=== PATIENT | female | born 2000 | race Caucasian/White ===

== ENCOUNTER 2019-03-11 11:54 | Emergency (ER) | payer OTHER ==
[~2019-03-11] VITALS: Ht 167.6 cm; Wt 60.8 kg
[2019-03-11 12:01] VITALS: BP 109/79; PULSE 86; RESP 18; Ht 167.6 cm; Wt 60.8 kg
[2019-03-11] MEDS ORDERED: LOPE2CAP PO (13:05)
[2019-03-11] MEDS ORDERED: ONDA4TAB14 PO (13:05)
--- NOTE | 2019-03-11 13:11 | ERD ---
ER Documentation Chief Complaint Chief Complaint Diarrhea 2x, wants to r/o food poisoning, need wk note yesterday HPI 18-year-old female presents with diarrhea x1 day. She states she is some sushi yesterday and developed the diarrhea afterwards. She states that she has watery stools. No bright red blood or dark stools noted. She has been having 5-6 episodes a day. She states that she has abdominal pain in the periumbilical area that is rated 8 out of 10, lasting 1 to 2 minutes at a time, described as sharp, nonradiating. She denies any fevers or chills. Denies chest pain or shortness of breath. No significant past medical history. No other modifying factors noted, no treatments tried at home. ROS All systems reviewed and are negative except as per history of present illness. Medications Home Meds Active Scripts Ondansetron (Ondansetron Odt) 4 Mg Tab.rapdis, 4 MG PO Q6H PRN for NAUSEA AND/OR VOMITING, #15 TAB Prov:JESUS OSORIO DO 03/11/19 Loperamide Hcl* (Imodium*) 2 Mg Capsule, 2 MG PO QID PRN for DIARRHEA, #30 CAP MAX 16 mg/day Prov:JESUS OSORIO DO 03/11/19 Allergies Allergies: Coded Allergies: No Known Allergy (Unverified , 03/11/19) PMhx/Soc Medical and Surgical Hx: pt denies Medical Hx, pt denies Surgical Hx Hx Alcohol Use: No Hx Substance Use: No Hx Tobacco Use: No Smoking Status: Never smoker FmHx Family History: No coronary disease Physical Exam Vitals Vital Signs Date Temp Pulse Resp B/P (MAP) Pulse Ox O2 O2 Flow FiO2 Time Delivery Rate 03/11/19 97.7 86 18 109/79 99 12:01 (89) Physical Exam Const: No acute distress Resp: Clear to auscultation bilaterally Cardio: Regular rate and rhythm, no murmurs Abd: Soft, non distended. Normal bowel sounds, mild tenderness palpation over the para umbilical area, no McBurney's point tenderness, no Holt sign, no rebound or guarding noted Skin: No petechiae or rashes Back: No midline or flank tenderness Ext: No cyanosis, or edema Neur: Awake and alert Psych: Normal Mood and Affect Procedures/MDM Medical Decision Making: Differential diagnosis includes but not limited to acute gastritis, acute gastroenteritis, appendicitis, cholecystitis, pancreatitis, nephrolithiasis, pyelonephritis Patient appeared well on physical exam. Nontoxic appearing. Abdominal examination relatively benign Given the patient appeared well and the abdominal examination was benign, there is low suspicion for appendicitis, cholecystitis, nephrolithiasis, pyelonephritis Given diarrhea and nausea after eating sushi, there is a possibility patient has acute gastroenteritis Prescription(s): Patient given prescription for supportive medications . Discussed with patient the importance of hydration. Patient advised to follow up with PCP in 1-2 days. Patient advised to return to ED for new or worsening symptoms. Patient stable on discharge from the ED. Disclaimer: Inadvertent spelling and grammatical errors are likely due to EHR/dictation software use and do not reflect on the overall quality of patient care. Also, please note that the electronic time recorded on this note does not necessarily reflect the actual time of the patient encounter. Departure Diagnosis: Primary Impression: Diarrhea Diarrhea type: unspecified type Qualified Codes: R19.7 - Diarrhea, unspecified Additional Impression: Nausea Condition: Fair Patient Instructions: Treating Diarrhea, Nausea Referrals: [facility] YOU HAVE RECEIVED A MEDICAL SCREENING EXAM AND THE RESULTS INDICATE THAT YOU DO NOT HAVE A CONDITION THAT REQUIRES URGENT TREATMENT IN THE EMERGENCY DEPARTMENT. FURTHER EVALUATION AND TREATMENT OF YOUR CONDITION CAN WAIT UNTIL YOU ARE SEEN IN YOUR DOCTORS OFFICE WITHIN THE NEXT 1-2 DAYS. IT IS YOUR RESPONSIBILITY TO MAKE AN APPOINTMENT FOR FOLOW-UP CARE. IF YOU HAVE A PRIMARY DOCTOR --you should call your primary doctor and schedule an appointment IF YOU DO NOT HAVE A PRIMARY DOCTOR YOU CAN CALL OUR PHYSICIAN REFERRAL HOTLINE AT IF YOU CAN NOT AFFORD TO SEE A PHYSICIAN YOU CAN CHOSE FROM THE FOLLOWING [facility] [address] [facility] [address] [facility] [address] [facility] [address] [facility] [address] [facility] [facility]. [address] Additional Instructions: Call your primary care doctor TOMORROW for an appointment during the next 1-2 days.See the doctor sooner or return here if your condition worsens before your appointment time. JESUS OSORIO DO March 11, 2019 13:11
== END 2019-03-11 13:32 | disposition home or self-care (01) ==
LOC: FTE 11:54
DX: R19.7 Diarrhea, unspecified (principal); R11.0 Nausea
CPT/HCPCS: 99283

== ENCOUNTER 2019-04-11 23:58 | Emergency (ER) | payer OTHER ==
[~2019-04-11] VITALS: Ht 167.6 cm; Wt 59.6 kg
[~2019-04-11 23:58] MED LIST: LOPE2CAP PO; ONDA4TAB14 PO
[2019-04-12 00:16] VITALS: BP 116/74; PULSE 79; RESP 18; Ht 167.6 cm; Wt 59.6 kg
--- NOTE | 2019-04-12 02:25 | ERD ---
ER Documentation Chief Complaint Chief Complaint bug bites on legs, wrists, once 4 days ago, again this morning while hiking HPI This is a 18-year-old female who was accompanied by mother in emerge department with complaints of bug bites to legs, wrists. Stated that this appeared this morning. Stated that she was hiking. LMP: Stated that she is on it. G0, . Denies headache, head injury, loss of consciousness, dizziness, neck pain, neck stiffness, throat pain, difficulty swallowing, difficulty breathing lying flat, shoulder pain, chest pain, back pain, abdominal pain, nausea, vomiting, constipation, diarrhea, urinary symptoms, or possibility being , loss of bowel and bladder control, trauma, injury, falls, difficulty walking due to pain, numbness or tingling sensation, calf pain, recent travel, recent major surgery in the last 3 weeks, calf pain, recent long travel, recent exposure to any illness, recent antibiotic use in the last 3 months, fever, chills, seizures. Past medical history: Denies. Surgical history: Denies. Social: Denies smoking, use of alcoholic beverages, use of illegal drugs. ROS All systems reviewed and are negative except as per history of present illness. Medications Home Meds Active Scripts Famotidine* (Pepcid*) 20 Mg Tablet, 20 MG PO BID for 30 Days, TAB Prov:SIRIA DUNNE 04/12/19 Cephalexin* (Keflex*) 500 Mg Capsule, 500 MG PO TID for 7 Days, CAP Prov:SIRIA DUNNE 04/12/19 Loratadine* (Loratadine*) 10 Mg Tablet, 10 MG PO DAILY, #30 TAB Prov:SIRIA DUNNE 04/12/19 Diphenhydramine Hcl* (Benadryl*) 25 Mg Cap, 25 MG PO Q6 PRN for ITCHING/RASH, #30 TAB Prov:SIRIA DUNNE 04/12/19 Prednisone* (Prednisone*) 20 Mg Tab, 40 MG PO DAILY for 4 Days, TAB Prov:SIRIA DUNNE 04/12/19 Ondansetron (Ondansetron Odt) 4 Mg Tab.rapdis, 4 MG PO Q6H PRN for NAUSEA AND/OR VOMITING, #15 TAB Prov:JESUS OSORIO DO 5/27/19 Loperamide Hcl* (Imodium*) 2 Mg Capsule, 2 MG PO QID PRN for DIARRHEA, #30 CAP MAX 16 mg/day Prov:JESUS OSORIO DO 03/11/19 Allergies Allergies: Coded Allergies: No Known Allergy (Unverified , 03/11/19) PMhx/Soc Hx Alcohol Use: No Hx Substance Use: No Hx Tobacco Use: No Physical Exam Vitals Vital Signs Date Temp Pulse Resp B/P (MAP) Pulse Ox O2 O2 Flow FiO2 Time Delivery Rate 04/12/19 98.6 79 18 116/74 100 00:16 (88) Physical Exam Const: No acute distress Head: Atraumatic Eyes: Normal Conjunctiva. No conjunctival injection. ENT: Normal External Ears, Nose and Mouth. Bilateral ear: TM is not erythematous. No bleeding. No discharge. No hearing loss. No mastoid tenderness. Nose: No nasal flaring. No signs of obstruction. Throat/Lips: No lip swelling. No tongue swelling. Able to control tongue movement. No drooling. Uvula is in midline and non-displaced. Tonsils are + 1 with no redness and no exudates. Tolerating secretions. Patent airway. Speaks full and clear sentences. No tripoding. Neck: Full range of motion. No meningismus. Nuchal rigidity. No signs of meningeal irritation. Resp: Clear to auscultation bilaterally. No retraction noted. No accessory muscle use in breathing. Cardio: Regular rate and rhythm, no murmurs. Abd: Soft, non tender, non distended. Normal bowel sounds. No abdominal tenderness. Skin: No petechiae. No vesicular lesions. Circular rash x4 to right wrist, circular rash x2 to right knee, circular rash x3 to left knee, circular rashes and hives noted to abdomen. No skin tenting. No signs of severe dehydration. Back: No midline or flank tenderness Ext: No cyanosis, or edema Neur: Awake and alert. No neurological deficit.. Psych: Normal Mood and Affect Results 24 hrs Current Medications Medications Dose Sig/Niraj Start Time Status Last (Trade) Ordered Route PRN Stop Time Admin Dose Reason Admin 125 mg ONCE ONCE 04/12/19 DC 04/12/19 Methylprednis IM 02:30 02:36 olone Sodium 04/12/19 02:31 Succinate (Solu-Medrol) Famotidine 40 mg ONCE ONCE 04/12/19 DC 04/12/19 (Pepcid) PO 02:30 02:36 04/12/19 02:31 50 mg ONCE ONCE 04/12/19 DC 04/12/19 Diphenhydrami PO 02:30 02:36 ne HCl 04/12/19 02:31 (Benadryl) Procedures/MDM Diagnostic tests: Clinical exam. Treatment: Solu-Medrol IM. Pepcid p.o. Benadryl. Re-evaluation: Denies itchiness. No drooling. Able to control tongue movement. No tripoding. No facial swelling. No accessory muscle use in breathing. Lung sounds are clear to auscultation. Capillary refills are less than 2 seconds. No neurovascular deficit. No neurological deficits. Stated that she feels much better this time and that she is ready to go home. Stated that she is comfortable to go home. Differential diagnosis I have low suspicion for anaphylaxis, anaphylactic shock, Prescott-Telly syn drome, scabies, deep space infection, shingles, hemorrhagic fever, chickenpox. Final diagnosis: Allergic reaction. Possible infection secondary to insect bite. Prescription: Prednisone. Benadryl. Claritin. Keflex to start in 2 days if developed fever. Follow-up with PCP in the next 24-48 hours. PCP to do an allergy test for environmental and food. PCP to refer patient to immunology specialist in the next 3 to 5 days. Come back here in the emergency department for any new symptoms or any worsening symptoms. All questions and concerns were answered. Patient and family members verbalized understanding and agreed with plan of care. Hemodynamically stable on discharge. Departure Diagnosis: Primary Impression: Insect bite Condition: Stable Additional Instructions: Follow-up with PCP in the next 24-48 hours. PCP to do an allergy test for environmental and food. PCP to refer patient to immunology specialist in the next 3 to 5 days. Come back here in the emergency department for any new symptoms or any worsening symptoms. SIRIA DUNNE Apr 12, 2019 02:25
[2019-04-12] MEDS ORDERED: METHYLPREDNISOLONE 125 MG INJ IM ONE (02:30)
[2019-04-12] MEDS ORDERED: DIPHENHYDRAMINE 50 MG CAP PO ONE (02:30)
[2019-04-12] MEDS ORDERED: FAMOTIDINE 20 MG TAB PO ONE (02:30)
[2019-04-12] MEDS ORDERED: LORA10TA3 PO (02:40)
[2019-04-12] MEDS ORDERED: BEN25 PO (02:40)
[2019-04-12] MEDS ORDERED: PRED20TA PO (02:40)
[2019-04-12] MEDS ORDERED: FAMO-96 PO (02:41)
[2019-04-12] MEDS ORDERED: CEPH-443 PO (02:41)
== END 2019-04-12 02:55 | disposition home or self-care (01) ==
LOC: FTE 23:58
DX: S80.861A Insect bite (nonvenomous), right lower leg, initial encounter (principal); S80.862A Insect bite (nonvenomous), left lower leg, initial encounter; W57.XXXA Bitten or stung by nonvenomous insect and other nonvenomous arthropods, initial encounter; Y92.9 Unspecified place or not applicable
CPT/HCPCS: 96372; J2930; Z7502; Z7610